=== PATIENT | female | born 1965 | race Two or more races ===

== ENCOUNTER 2024-04-03 08:30 | Emergency (ER) | payer OTHER ==
[~2024-04-03] VITALS: Ht 160 cm; Wt 68.0 kg
[2024-04-03] MEDS ORDERED: KETOROLAC TROMETHAMINE 30 MG VIAL ONE (09:53)
== END 2024-04-03 12:34 | disposition home or self-care (01) ==
LOC: ER 08:32
DX: S20.213A Contusion of bilateral front wall of thorax, initial encounter (principal); S80.01XA Contusion of right knee, initial encounter; W10.8XXA Fall (on) (from) other stairs and steps, initial encounter; Y93.89 Activity, other specified; Y92.89 Other specified places as the place of occurrence of the external cause; Y99.9 Unspecified external cause status; R07.81 Pleurodynia; M25.561 Pain in right knee